=== PATIENT | female | born 1995 | race Caucasian/White ===

== ENCOUNTER 2017-04-04 00:29 | Inpatient (IN) ==
--- NOTE | 2017-04-03 19:35 | OB/GYN History & Physical ---
Date of Encounter: 04/03/17 Time of Encounter: 19:20 Assessment and Plan (1) care insufficient Current visit: Yes Status: Acute Unable to obtain labs will draw panel Qualifiers: Trimester: third trimester Qualified Code(s): O09.33 - Supervision of with insufficient care, third trimester (2) Previous delivery affecting Current visit: Yes Status: Acute (3) 38 weeks gestation of Current visit: Yes Status: Acute (4) Spontaneous rupture of amniotic membranes Current visit: Yes Status: Acute Speculum exam shows visual pooling and positive nitrazine. Dr. Steiner made aware and patient prepared for section History of Present Illness Chief complaint: SROM HPI: Ms. Muñoz is a 22 year old female at 37 3/7 wks gestation with a PMH of one vaginal delivery, previous for breech, that presents for SROM. Patient says she noticed vaginal fluid leakage 1 hour ago. She admits to good movement. She denies contractions. Denies vaginal bleeding. Denies ALCAZAR, vision changes, chest pain, nausea, vomiting, fever, dysuria, and diarrhea. She denies previous post- hemorrhage. labs unknown. states had care early in , but moved to [place] and unable to establish care due to lack of insurance. Past Med Surg Social Fam HX - Social History Smoking Status: Never smoker Smokeless Tobacco Status: No Alcohol use: none Obstetrical History - Pregnancies : 3 Para: 2 Term: 2 : 0 Ab's: 0 Livin Medications and Allergies No Known Home Drugs 03/02/17 [History] 3 Allergy/AdvReac Type Severity Reaction Status Date / Time No Known Allergies Allergy Verified 04/03/17 19:45 Exam - Vital Signs Vital signs: BP: 116/67 Pulse: 93 HR: 140 Opal: 10 - Constitutional Constitutional: well developed, well nourished, no acute distress, average body habitus - HEENT HEENT: PERRL, Mucus Membranes Moist - Lungs Respiratory exam: CTAB - Cardiovascular Cardiovascular exam: RRR, +S1, +S2 - Abdomen Abdomen: Present: bowel sounds normal, gravid, non tender - Extremities Extremities exam: normal capillary refill, normal inspection, radial pulses palpable and symmetrical Deep Tendon Reflex Grade: 2+ Normal - Vagina Vagina: Present: normal moisture Results Result Diagrams: 04/03/17 19:34 All other labs normal.
--- NOTE | 2017-04-03 19:37 | Anesthesia Evaluation PreOp ---
Date of Encounter: 04/03/17 Time of Encounter: 19:22 - Past History Planned Operation: repeat , SROM 38wks Cardiac History: Denies any Significant Hx Pulmonary History: Denies Any Significant HX SPRAGGER History: Denies Any Significant HX Other Medical History: Denies Any Significant HX Anesthesia History: No Prior Anesthetic Complications, Past Anesthesia Alcohol Use: none Medications and Allergies No Known Home Drugs 03/02/17 [History] 3 Allergy/AdvReac Type Severity Reaction Status Date / Time No Known Allergies Allergy Verified 03/02/17 15:14 Anesthesia Exam - HEENT Pupil (Motor): Pupils equal Mallampati: II Teeth: Normal Oral Opening: Greater than 3 - SPRAGGER LOC: Oriented SPRAGGER Motor: Normal RUE, Normal LUE, Normal RLE, Normal LLE, Normal Face SPRAGGER Sensory: Normal: RUE, LUE, RLE, LLE, Face - Cardiac Rhythm: Regular Murmur: None - Pulmonary Breath Sounds: bilateral Clear Respiratory Effort: Symmetrical Anesthesia Assess/Plan ASA Score: 2 Modified Spring Scale for Level of Consciousness: Cooperative, oriented, and tranquil Anesthetic Plan: General, Regional Monitoring Plan: Standard Monitors Recovery Plan: PACU
[2017-04-03 19:44] LABS: Basophils # 0.1 K/mcL (0.0-0.2); Basophils % 0.4 %; Eosinophils # 0.1 K/mcL (0.0-0.6); Hematocrit 34.9 % (35.3-44.9); Hemoglobin 11.3 g/dL (11.5-15.4); Immature Granulocytes % 1.4 % (0-4); Lymphocytes # 2.8 K/mcL (0.6-4.6); Lymphocytes % 24.2 %; Mean Corpuscular HGB Conc 32.4 g/dL (31.6-35.5); Mean Corpuscular Hemoglobin 27.1 pg (28.0-33.3); Mean Corpuscular Volume 83.7 fL (83.0-100.0); Mean Platelet Volume 11.5 fL (9.4-12.4); Monocytes # 0.7 K/mcL (0.0-1.3); Monocytes % 6.4 %; Neutrophils # 7.6 K/mcL (1.6-8.9); Platelet Count 221 K/mcL (140-400); Red Blood Count 4.17 M/mcL (3.82-4.97); Red Cell Distribution Width 14.5 % (11.5-14.5); Segmented Neutrophils % 66.6 %
[2017-04-03 20:39] LABS: HIV-1&2 Antibody & p24 Ag Nonreactive (Nonreactive); Hepatitis B Surface Antigen Nonreactive (Nonreactive)
--- NOTE | 2017-04-03 22:19 | OB/GYN Procedure Note ---
Section - Date of procedure: 04/03/17 Preop diagnosis: desires repeat , other (SROM) Post-op diagnosis: same Procedure: repeat low transverse Surgeon: Sai Steiner Estimated blood loss (cc): 500 Anesthesiologist: Genaro Nunez Anesthesia Type: Spinal section complications: none Disposition: PACU Specimens: Placenta - Infant (s) A Delivery Date: 04/03/17 Delivery Time: 21:20 Presentation: vertex Position: OA Gender: Male Viability: Viable Pounds: 7 Ounces: 6 at 1 minute: 8 at 5 minutes: 9 Placenta: complete extraction - Narrative Narrative: Patient was taken to the operating room. After satisfactory spinal anesthesia was achieved, patient was placed in supine position , Lynn catheter inserted , and prepped and draped in usual manner. After satisfactory timeout, abdomen was entered through a standard Maylard incision. The Horacio retractor was placed. The peritoneum overlying the lower uterine segment was incised in the U -shaped fashion. Uterine cavity was entered sharply and extended laterally. Fluid was clear. With fundal pressure the head was delivered. suctioned upon delivery of the head. The remainder of the was delivered , umbilical cord double clamped and cut, and handed to nursery staff for further evaluation. The placenta was removed and sent to pathology for analysis. Uterus was closed in single layer using 0 Monocryl. After assurance of hemostasis, the abdomen was closed in standard fashion using 0 Vicryl on the fascia and 3-0 Monocryl on the skin. Sterile dressing was applied. Patient did well was taken to recovery room in satisfactory condition. Counts were correct.
--- NOTE | 2017-04-03 22:22 | Anesthesia Evaluation Post Op ---
Date of Encounter: 04/03/17 Time of Encounter: 22:22 - Vital Signs Vital Signs: vss - Lungs Lungs: Clear Ascult./Percussion - Airway Airway: Non-obstructed - Cardiovascular Baseline Rhythm - Mental Status Mental Status: Alert & Oriented, Answers Appropriately - Pain Pain Scale used: Jaya (Faces) - Nausea Vomiting Nausea Vomiting: Not Present - Hydration Hydration: Lynn catheter - Discharge PostOp Status: Transfer Patient to floor
[2017-04-04] MEDS: Oxytocin 20 units/ LR 1000 mL 20 UNIT/1,000 ML BAG IVC SCH ×3 (00:15→15:45)
[~2017-04-04 00:29] MED LIST: *HR* FentaNYL (PF) 100 MCG/2 ML VIAL ONE; *HR* HYDROmorphone (PF) 1 MG/ML SYRINGE IVP PRN; *HR* HYDROmorphone (PF) 1 MG/ML SYRINGE ONE; *HR* Morphine 2 MG/ML SYRINGE IVP PRN; *HR* Morphine Sulfate/PF 5 MG/10 ML AMPUL ONE; *HR* Oxytocin 10 UNIT/ML VIAL IM ONE; *HR* Promethazine 25 MG/ML VIAL IVP PRN; Acetaminophen 325 MG TABLET PO PRN; EPHEDrine 50 MG/ML VIAL ONE; Famotidine 20 MG/2 ML VIAL IVP PRN; Measles/Mumps/Rubella Vacc 0.5 ML VIAL SQ ONE; Metoclopramide 10 MG/2 ML VIAL IVP PRN; Naloxone 0.4 MG/ML INJ IVP PRN; Ondansetron 4 MG/2 ML VIAL IVP PRN; Ondansetron 4 MG/2 ML VIAL ONE; Ringers Solution, Lactated 1,000 ML IVC SCH; Ringers Solution, Lactated 1,000 ML ONE; Ringers Solution, Lactated 2,000 ML ONE; Sennosides 8.6 MG TABLET PO PRN; Simethicone 80 MG TAB.CHEW PO PRN
[2017-04-04] MEDS: *HR* OxyCODONE/APAP 5/325 TABLET PO PRN ×3 (05:39→20:48)
[2017-04-04 06:02] LABS: Basophils % 0.2 %; Eosinophils % 0.3 %; Hematocrit 31.2 % (35.3-44.9); Immature Granulocytes % 0.9 % (0-4); Mean Corpuscular HGB Conc 32.1 g/dL (31.6-35.5); Mean Corpuscular Hemoglobin 26.8 pg (28.0-33.3); Mean Corpuscular Volume 83.6 fL (83.0-100.0); Mean Platelet Volume 11.3 fL (9.4-12.4); Monocytes # 0.8 K/mcL (0.0-1.3); Monocytes % 6.5 %; Neutrophils # 9.7 K/mcL (1.6-8.9); Platelet Count 185 K/mcL (140-400); Red Blood Count 3.73 M/mcL (3.82-4.97); Red Cell Distribution Width 14.6 % (11.5-14.5); Segmented Neutrophils % 76.1 %
[2017-04-04] MEDS: Prenatal Vit/FA 1 EACH TABLET PO SCH (08:14)
[2017-04-04] MEDS: Ibuprofen 600 MG TABLET PO PRN ×2 (08:14→15:46)
--- NOTE | 2017-04-04 09:33 | OB/GYN Progress Note ---
Date of Encounter: 04/04/17 Time of Encounter: 09:31 - Assessment and Plan (1) Status post delivery Current Visit: Yes Status: Acute The patient has just had her Lynn removed and has not voided. She is tolerating a clear diet without flatus. She is to increase ambulation to help return of bowel function. Advance diet as tolerated. If unable to void after 4 -6 hours she will need straight cathetered Subjective - Subjective Principal diagnosis: [id number] Patient reports: appetite normal, pain well controlled [place]: doing well Objective - Vital Signs Latest vital signs: Vital Signs Temp Pulse Resp BP Pulse Ox 04/04/17 08:30 98.2 F 62 16 100/61 98 04/04/17 03:15 97.6 F 57 16 108/62 96 04/04/17 02:15 97.4 F L 56 16 103/54 94 04/04/17 01:20 97.4 F L 60 16 120/67 97 04/04/17 00:50 97.8 F 55 16 91/53 96 Intake and Output 04/03/17 04/04/17 04/04/17 23:59 07:59 15:59 Intake Total 1100 / 1100 Output Total 500 / 500 300 / 300 75 / 75 Balance -500 / -500 800 / 800 -75 / -75 Intake: IV Fluids 1000 / 1000 Pitocin 20 unit In 1,000 ml @ 1000 / 1000 125 mls/hr IVC .Q8H [facility] Rx#: [id number] Oral 100 / 100 Output: Estimated Blood Loss 500 / 500 Catheter 300 / 300 75 / 75 Other: Weight 110.9 kg - Exam Lungs: bilateral: normal Chest: Normal S1, Normal S2 Extremities: Present: edema. Absent: tenderness Abdomen: Present: normal appearance, soft, tenderness (appropriate). Absent: distention Incision: Present: dry, intact, dressed Uterus: Present: normal, firm - Labs Labs: Laboratory Results - last 24 hr 04/03/17 04/03/17 04/03/17 19:34 19:51 19:51 WBC 11.5 H RBC 4.17 Hgb 11.3 L Hct 34.9 L MCV 83.7 MCH 27.1 L MCHC 32.4 RDW 14.5 Plt Count 221 MPV 11.5 Immature Gran % 1.4 Seg Neutrophils % 66.6 Lymphocytes % 24.2 Monocytes % 6.4 Eosinophils % 1.0 Basophils % 0.4 Neutrophils # 7.6 Lymphocytes # 2.8 Monocytes # 0.7 Eosinophils # 0.1 Basophils # 0.1 Hep Bs Antigen Nonreactive HIV Ag/Ab Combo Qual Nonreactive Blood Type O POSITIVE 04/04/17 05:49 WBC 12.7 H RBC 3.73 L Hgb 10.0 L Hct 31.2 L MCV 83.6 MCH 26.8 L MCHC 32.1 RDW 14.6 H Plt Count 185 MPV 11.3 Immature Gran % 0.9 Seg Neutrophils % 76.1 Lymphocytes % 16.0 Monocytes % 6.5 Eosinophils % 0.3 Basophils % 0.2 Neutrophils # 9.7 H Lymphocytes # 2.0 Monocytes # 0.8 Eosinophils # 0.0 Basophils # 0.0 Hep Bs Antigen HIV Ag/Ab Combo Qual Blood Type - Allied health notes Allied health notes reviewed: nursing
[2017-04-05] MEDS: *HR* OxyCODONE/APAP 5/325 TABLET PO PRN ×4 (03:27→19:03)
[2017-04-05] MEDS: Ibuprofen 600 MG TABLET PO PRN ×2 (05:52→19:03)
[2017-04-05] MEDS: Prenatal Vit/FA 1 EACH TABLET PO SCH (08:35)
[2017-04-05] MEDS ORDERED: Lanolin 7 G OINT...G. TP PRN (09:17)
--- NOTE | 2017-04-05 13:41 | OB/GYN Progress Note ---
Date of Encounter: 04/05/17 Time of Encounter: 13:25 - Assessment and Plan (1) 37 weeks gestation of Current Visit: Yes Status: Resolved (2) Status post delivery Current Visit: Yes Status: Acute Patient's pain is well controlled. Dressing over incision site has increased in drainage. Patient is meeting milestones. - Harry dressing will be changed. (3) anemia Current Visit: Yes Status: Acute Hemoglobin currently stable at 10.0 - continue iron supplements. (4) Cough Current Visit: Yes Status: Acute Clear productive cough. Afebrile. Lungs clear on examination. - Robitussin/DM PRN. Subjective - Subjective Principal diagnosis: S/P Interval history: Ms. Muñoz is a 22 year old female that was at 37 3/7 wks gestation with a PMH of one vaginal delivery, previous for breech, that presented for SROM. Patient says that she is doing well and admits to good mood. She says that she has little to none vaginal bleeding. She does admit to intermittent abdominal cramping, stating that it can be up to a 6/10 on the pain scale at it' s worst, but is usually a 1-2. She says that she has been having intermittent clear prouductive coughing in the morning, although she currently she has not been. She denies any shortness of breath, fever, or chills. She denies chest pain, headaches, nausea, or vomiting. She is currently breast feeding the baby and the baby is doing well. Patient reports: appetite normal, voiding normally, pain well controlled, ambulating normally [place]: doing well, nursing well Objective - Vital Signs Latest vital signs: Vital Signs Temp Pulse Resp BP Pulse Ox 04/05/17 08:02 98.1 F 58 12 88/53 97 04/04/17 20:15 98.3 F 68 16 102/62 98 04/04/17 15:50 98.1 F 60 16 103/59 99 Intake and Output 04/04/17 04/05/17 04/05/17 23:59 07:59 15:59 Intake Total 120 / 120 400 / 400 Output Total 500 / 500 600 / 600 Balance -380 / -380 -200 / -200 Intake: Oral 120 / 120 400 / 400 Output: Urine 500 / 500 600 / 600 Other: Meal Dinner Percent of Meal Consumed 100% # Voids 1 Repeat BP at 1345 was 111/65. - Exam Lungs: bilateral: normal Chest: Normal S1, Normal S2 Extremities: Present: normal. Absent: tenderness, edema Abdomen: Present: normal appearance, soft, tenderness (Tenderness in RLQ and LLQ. ) Incision: Present: normal, intact, other (There is still some draining in the mid-section of the incision dress. It was marked this morning and has increased past the anselmo today.), dressed
[2017-04-06] MEDS: *HR* OxyCODONE/APAP 5/325 TABLET PO PRN ×2 (04:13→09:26)
[2017-04-06] MEDS: Ibuprofen 600 MG TABLET PO PRN ×2 (04:14→12:09)
--- NOTE | 2017-04-06 07:57 | Discharge Summary ---
Date of Encounter: 04/06/17 Time of Encounter: 07:53 - Discharge Diagnosis (1) Status post delivery Priority: Primary Status: Acute Comments: Continue routine postop/ care discharge home today follow up with Dr. Steiner in 2 weeks for incision check (2) Breast feeding status of mother Priority: Secondary Status: Acute Comments: Continue support prn - Discharge Medications Prescriptions: OxyCODONE/APAP 5/325 [Percocet 5/325 MG] 1 each PO Q4HR PRN #30 tablet PRN Reason: Moderate pain 4-6 Ibuprofen [Motrin] 600 mg PO Q6HR PRN #60 tablet PRN Reason: Cramping Breast Pump [BREAST PUMP] 1 each .ROUTE AD #1 each Home Medications: Breast Pump [BREAST PUMP] 1 each .ROUTE AD #1 each 04/06/17 [Rx] Ibuprofen [Motrin] 600 mg PO Q6HR PRN #60 tablet 04/06/17 [Rx] Lanolin [Lansinoh] 1 appl TP TID PRN oint...g. 04/06/17 [Rx] OxyCODONE/APAP 5/325 [Percocet 5/325 MG] 1 each PO Q4HR PRN #30 tablet 04/06/17 [Rx] Vit/FA 1 each PO DAILY tablet 04/06/17 [Rx] Allergies/Adverse Reactions: 3 Allergy/AdvReac Type Severity Reaction Status Date / Time No Known Allergies Allergy Verified 04/03/17 19:45 Data Procedures and tests throughout hospitalization: Laboratory Tests 04/03/17 04/03/17 04/03/17 19:34 19:51 19:51 WBC 11.5 H RBC 4.17 Hgb 11.3 L Hct 34.9 L MCV 83.7 MCH 27.1 L MCHC 32.4 RDW 14.5 Plt Count 221 MPV 11.5 Immature Gran % 1.4 Seg Neutrophils % 66.6 Lymphocytes % 24.2 Monocytes % 6.4 Eosinophils % 1.0 Basophils % 0.4 Neutrophils # 7.6 Lymphocytes # 2.8 Monocytes # 0.7 Eosinophils # 0.1 Basophils # 0.1 Hep Bs Antigen Nonreactive HIV Ag/Ab Combo Qual Nonreactive Blood Type O POSITIVE 04/04/17 05:49 WBC 12.7 H RBC 3.73 L Hgb 10.0 L Hct 31.2 L MCV 83.6 MCH 26.8 L MCHC 32.1 RDW 14.6 H Plt Count 185 MPV 11.3 Immature Gran % 0.9 Seg Neutrophils % 76.1 Lymphocytes % 16.0 Monocytes % 6.5 Eosinophils % 0.3 Basophils % 0.2 Neutrophils # 9.7 H Lymphocytes # 2.0 Monocytes # 0.8 Eosinophils # 0.0 Basophils # 0.0 Hep Bs Antigen HIV Ag/Ab Combo Qual Blood Type Date of admission: 04/04/17 00:30 Consults: 04/03/17 22:15 Consult to Well Service Floorperson (W&C) [CONS] Routine Reason For Exam: Reason for SW Consult: limited care Discharging clinician: Wanda Johnson Anticipated date of discharge: 04/06/17 - Patient Status Disposition: Home, Self-Care Condition: Good Functional capacity at discharge: independent ambulation - Discharge Instructions Instructions: Ibuprofen (By mouth), Oxycodone/Acetaminophen (By mouth), Laxative, Stool Softeners (By mouth) Follow Up With: Sai Steiner MD [Partnered Physician] - - Diet and Activity Activity: increase activity as tolerated Diet: regular diet Hospital Course Procedures: oarrs report reviewed by MAXWELL Corea Reason for admission: rupture of membranes Delivery: section Episiotomy: none Laceration: none Other procedures: none complications: none Discharge diagnosis: IUP at term delivered [place] baby: male (breast feeding) Time Attestation: Total time spent providing and/or coordinating discharge services: Time Spent: Less than 30 minutes - VTE Documentation of Mechanical Device: Intermittent pneumatic compression device Exam - Constitutional Vitals: Temp Pulse Resp BP Pulse Ox 98.5 F 55 16 103/68 95 04/05/17 21:40 04/05/17 21:40 04/05/17 21:40 04/05/17 21:40 04/05/17 21:40 General appearance IM: A&O X 3, pleasant, answers questions appropriately - Respiratory Respiratory exam: Present: CTAB - Cardiovascular Cardiovascular exam IM: Present: RRR, +S1, +S2 - GI/Abdominal GI/Abdominal exam IM: normal bowel sounds Incision: normal, dry, dressed (YAMEL dressing) - Uterine Tone: Firm Uterus Position: 2 Fingers Below Umbilicus, Midline - Extremities Exam Extremities exam IM: Present: full ROM, normal capillary refill, normal inspection - Neurological Exam Neurological exam: alert, oriented X3, reflexes normal
[2017-04-06 09:02] VITALS: BP 111/70
[2017-04-06] MEDS: Prenatal Vit/FA 1 EACH TABLET PO SCH (09:26)
[2017-04-06 10:01] LABS: Varicella Zoster IgG Antibody Positive
[2017-04-06] MEDS ORDERED: Lidocaine -MPF 1% 5 ML AMPUL ONE (11:41)
[2017-04-06] MEDS ORDERED: LIDOCAINE 1% PF 2 ML AMPUL INFILT ONE (11:42)
--- NOTE | 2017-04-06 11:57 | OB/GYN Progress Note ---
Date of Encounter: 04/06/17 Time of Encounter: 12:00 - Assessment and Plan (1) Separation of wound with drainage, Current Visit: Yes Status: Acute [place] placed will discharge home with prescription for Keflex she will follow- up in the office in 3 days for reevaluation Subjective - Subjective Interval history: Called to see patient due to wound separation. The middle section of her incision is opened up approximately 5 cm and it appears that the Monocryl has been and is unraveling both directions. Patient's had significant amount of drainage from the incision for the past 48 hours. It appears she has a seroma that is draining. Because incision looks like it can open up the entire way to decide this time to see if we could use some aura to reapproximate the edges. Objective - Vital Signs Latest vital signs: Vital Signs Temp Pulse Resp BP Pulse Ox 04/06/17 07:55 98.5 F 56 16 111/70 97 04/05/17 21:40 98.5 F 55 16 103/68 95 04/05/17 13:39 111/65 Intake and Output 04/05/17 04/06/17 04/06/17 23:59 07:59 15:59 Intake Total 240 / 240 250 / 250 Output Total 600 / 600 Balance 240 / 240 -350 / -350 Intake: Oral 240 / 240 250 / 250 Output: Urine 600 / 600 Other: Meal Dinner Percent of Meal Consumed 100% Weight 108.6 kg Patient Weight 04/06/17 23:59 Weight 108.6 kg - Exam Incision: Present: other (Incision is opened in the midline 1% lidocaine was used to infiltrate the edges and the staple was used to reapproximate the edges along with additional portion of the incision. Steri-Strips are then applied and the edges.) - Labs Labs: Laboratory Results - last 24 hr 04/03/17 19:51 T.pallidum Ab Interpret NEGATIVE VZV IgG Antibody Positive
[2017-04-06 13:00] LABS: Rubella IgG Antibody POSITIVE (POSITIVE)
== END 2017-04-06 15:45 | disposition home or self-care (01) | DRG 540 ==
LOC: 1NENULAB → 1NENUOBS 00:29
PROVIDERS: ADMIT Obstetrics & Gynecology; ATTEND Obstetrics & Gynecology